=== PATIENT | female | born 1965 | race Caucasian/White ===

== ENCOUNTER 2016-12-04 09:31 | Emergency (ER) | payer OTHER ==
[~2016-12-04] VITALS: Ht 170.2 cm; Wt 81.6 kg
[2016-12-04] MEDS ORDERED: ASPIRIN 81 MG CHEW (CHILDREN'S ASA) PO ONE (09:45)
[2016-12-04] MEDS: RX-NITROGLYCERIN 0.4 MG TAB BTL 25'S SL PRN ×2 (09:47→10:00)
[2016-12-04] MEDS ORDERED: NS IV 1000 ML 1,000 ML ONE (09:55)
[2016-12-04 09:56] LABS: BASOPHILS # (AUTO) 0.1 10^3/uL (0.0-0.1); BASOPHILS % (AUTO) 2 % (0-10); EOSINOPHILS # (AUTO) 0.5 10^3/uL (0.0-0.3); EOSINOPHILS % (AUTO) 8 % (0-10); LYMPHOCYTES # (AUTO) 2.9 X 10^3 (1.0-4.0); LYMPHOCYTES % (AUTO) 43 % (12-44); MEAN CORPUSCULAR HEMOGLOBIN 30 PG (25-34); MEAN CORPUSCULAR HGB CONC 33 G/DL (32-36); MEAN CORPUSCULAR VOLUME 90 FL (80-99); MEAN PLATELET VOLUME 10.2 FL (7.4-10.4); MONOCYTES # (AUTO) 0.4 X 10^3 (0.0-1.0); MONOCYTES % (AUTO) 6 % (0-12); NEUTROPHILS # (AUTO) 2.8 X 10^3 (1.8-7.8); NEUTROPHILS % (AUTO) 42 % (42-75); PLATELET COUNT 250 10^3/uL (130-400); RED BLOOD COUNT 5.15 10^6/uL (4.35-5.85); RED CELL DISTRIBUTION WIDTH 13.1 % (10.0-14.5); WHITE BLOOD COUNT 6.7 10^3/uL (4.3-11.0)
--- NOTE | 2016-12-04 10:01 | Diagnostic Imaging Report ---
Portable upright radiograph of the chest. INDICATION: Chest pain and shortness of breath. FINDINGS: The lungs are clear. Heart size is normal. No effusion or pneumothorax. The mediastinum and edinson appear unremarkable. IMPRESSION: Unremarkable exam. Dictated by: Dictated on workstation # [id number]
[2016-12-04 10:13] LABS: INR 0.9 (0.8-1.4); PROTHROMBIN TIME PATIENT 11.5 SEC (12.2-14.7)
[2016-12-04 10:16] LABS: ALANINE AMINOTRANSFERASE 24 U/L (0-55); ALBUMIN 4.5 G/DL (3.2-4.5); ANION GAP 10 MMOL/L (5-14); ASPARTATE AMINO TRANSFERASE 24 U/L (5-34); BILIRUBIN,TOTAL 0.5 MG/DL (0.1-1.0); BLOOD UREA NITROGEN 11 MG/DL (7-18); BUN/CREATININE RATIO 14; CALCIUM 9.6 MG/DL (8.5-10.1); CARBON DIOXIDE 26 MMOL/L (21-32); CHLORIDE 108 MMOL/L (98-107); CREATININE SERUM 0.77 MG/DL (0.60-1.30); GFR ESTIMATED > 60; GLUCOSE 79 MG/DL (70-105); LIPASE 44 U/L (8-78); MAGNESIUM 2.5 MG/DL (1.8-2.4); SODIUM 144 MMOL/L (135-145); TOTAL PROTEIN 7.1 G/DL (6.4-8.2)
--- NOTE | 2016-12-04 10:21 | ED Chest Pain ---
General Chief Complaint: Chest Pain Stated Complaint: CHEST PAIN Nursing Triage Note: PT STATES MID STERNAL CHEST PAIN 8/10 FOR ABOUT 30 MINTUES. STATES L ARM TINGLING BUT NO OTHER RADIATING PAIN. Nursing Sepsis Screen: No Definite Risk Source: patient Exam Limitations: no limitations (AXEL KAPADIA MD) History of Present Illness Time seen by provider: 09:33 Initial Comments This 51-year-old woman presents to the emergency room with complaints of sudden onset of chest pain about 30 minutes prior to arrival. She is traveling from [place] by a car. She rates the pain is 8/10. It is difficult to take a deep breath and pain is exacerbated little bit with deep breathing. Pain is from the xiphoid area up through the left chest and radiates to the back. She denies any history of cardiopulmonary problems. She reports recently being treated for a left breast infection. She has a former smoking history and a family history of cardiac disease. She is rather hypertensive on presentation. She reports some numbness and tingling in her fingers. (AXEL KAPADIA MD) Allergies and Home Medications Allergies Coded Allergies: codeine (Verified Adverse Reaction, Mild, 12/04/16) Mental status changes Review of Systems Constitutional: no symptoms reported EENTM: No Symptoms Reported Respiratory: See HPI Cardiovascular: See HPI Gastrointestinal: No Symptoms Reported Genitourinary: No Symptoms Reported Musculoskeletal: no symptoms reported Skin: no symptoms reported Psychiatric/Neurological: No Symptoms Reported Endocrine: No Symptoms Reported Hematologic/Lymphatic: No Symptoms Reported (AXEL KAPADIA MD) Past Iyowjxm-Swhugg-Ckyzmp Hx Patient Social History Alcohol Use: Denies Use Recreational Drug Use: No Smoking Status: Former Smoker 2nd Hand Smoke Exposure: No Recent Foreign Travel: No Contact w/Someone Who Travel: No Recent Infectious Disease Expo: No Recent Hopitalizations: No (AXEL KAPADIA MD) Seasonal Allergies Seasonal Allergies: No (AXEL KAPADIA MD) Surgeries Surgeries: Section, Tonsillectomy (AXEL KAPADIA MD) Respiratory Hx Respiratory Disorders: No (AXEL KAPADIA MD) Cardiovascular Hx Cardiac Disorders: Yes Cardiac Disorders: High Cholesterol (AXEL KAPADIA MD) Neurological Hx Neurological Disorders: No (AXEL KAPADIA MD) Reproductive System : No (AXEL KAPADIA MD) Genitourinary Hx Genitourinary Disorders: No (AXEL KAPADIA MD) Gastrointestinal Hx Gastrointestinal Disorders: No (AXEL KAPADIA MD) Musculoskeletal Hx Musculoskeletal Disorders: No (AXEL KAPADIA MD) Endocrine Hx Endocrine Disorders: No (AXEL KAPADIA MD) HEENT HX ENT Disorders: No (AXEL KAPADIA MD) Cancer Hx Cancer: No (AXEL KAPADIA MD) Psychosocial Hx Psychiatric Problems: No (AXEL KAPADIA MD) Integumentary HX Skin/Integumentary Disorder: No (AXEL KAPADIA MD) Physical Exam Vital Signs Vital Sign - Last 12Hours 12/04/16 12/04/16 09:34 09:55 Temp 98.5 Pulse 95 Resp 20 B/P (MAP) 187/105 O2 Delivery Room Air (JALEESA RUIZ MD) Vital Signs Capillary Refill : Less Than 3 Seconds (AXEL KAPADIA MD) General Appearance: Mild Distress HEENT: PERRL/EOMI, Normal ENT Inspection Neck: Normal Inspection Respiratory: Chest Non Tender, Lungs Clear, Normal Breath Sounds, No Accessory Muscle Use, No Respiratory Distress Cardiovascular: Regular Rate, Rhythm, No Edema, No Murmur Gastrointestinal: Normal Bowel Sounds, Non Tender, Soft Extremity: Normal Inspection, Non Tender, No Calf Tenderness, No Pedal Edema, Other (negative Malcolm) Neurologic/Psychiatric: Alert, Oriented x3, Normal Mood/Affect, seismograph helper II-XII Norm as Tested, Other (somewhat anxious) Skin: Normal Color, Warm/Dry (AXEL KAPADIA MD) Progress/Results/Core Measures Results/Orders Lab Results Laboratory Tests Test 12/04/16 09:39 12/04/16 11:45 Range/Units White Blood Count 6.7 4.3-11.0 10^3/uL Red Blood Count 5.15 4.35-5.85 10^6/uL Hemoglobin 15.3 11.5-16.0 G/DL Hematocrit 46 35-52 % Mean Corpuscular Volume 90 80-99 FL Mean Corpuscular Hemoglobin 30 25-34 PG Mean Corpuscular Hemoglobin Concent 33 32-36 G/DL Red Cell Distribution Width 13.1 10.0-14.5 % Platelet Count 250 130-400 10^3/uL Mean Platelet Volume 10.2 7.4-10.4 FL Neutrophils (%) (Auto) 42 42-75 % Lymphocytes (%) (Auto) 43 12-44 % Monocytes (%) (Auto) 6 0-12 % Eosinophils (%) (Auto) 8 0-10 % Basophils (%) (Auto) 2 0-10 % Neutrophils # (Auto) 2.8 1.8-7.8 X 10^3 Lymphocytes # (Auto) 2.9 1.0-4.0 X 10^3 Monocytes # (Auto) 0.4 0.0-1.0 X 10^3 Eosinophils # (Auto) 0.5 H 0.0-0.3 10^3/uL Basophils # (Auto) 0.1 0.0-0.1 10^3/uL Prothrombin Time 11.5 L 12.2-14.7 SEC INR Comment 0.9 0.8-1.4 Activated Partial Thromboplast Time 30 24-35 SEC D-Dimer 0.29 0.00-0.49 UG/ML Sodium Level 144 135-145 MMOL/L Potassium Level 4.0 3.6-5.0 MMOL/L Chloride Level 108 H 98-107 MMOL/L Carbon Dioxide Level 26 21-32 MMOL/L Anion Gap 10 5-14 MMOL/L Blood Urea Nitrogen 11 7-18 MG/DL Creatinine 0.77 0.60-1.30 MG/DL Estimat Glomerular Filtration Rate > 60 BUN/Creatinine Ratio 14 Glucose Level 79 70-105 MG/DL Calcium Level 9.6 8.5-10.1 MG/DL Magnesium Level 2.5 H 1.8-2.4 MG/DL Total Bilirubin 0.5 0.1-1.0 MG/DL Aspartate Amino Transf (AST/SGOT) 24 5-34 U/L Alanine Aminotransferase (ALT/SGPT) 24 0-55 U/L Alkaline Phosphatase 86 40-136 U/L Myoglobin 42.0 33.0 10.0-92.0 NG/ML Troponin I < 0.30 < 0.30 <0.30 NG/ML Total Protein 7.1 6.4-8.2 G/DL Albumin 4.5 3.2-4.5 G/DL Lipase 44 8-78 U/L (JALEESA RUIZ MD) My Orders Orders - JALEESA RUIZ MD Troponin I (12/04/16 11:08) Ekg Tracing (12/04/16 11:08) Lidocaine 2% Viscous 15 Ml (Xylocaine Vi (12/04/16 11:15) Antacid Suspension (Mylanta Suspension (12/04/16 11:15) Myoglobin Serum (12/04/16 11:08) (JALEESA RUIZ MD) Medications Given in ED Current Medications Medications Dose Ordered Sig/Corrina Route Start Time Stop Time Status Last Admin Dose Admin Aspirin 324 mg ONCE ONCE PO 12/04/16 09:45 12/04/16 09:46 DC 12/04/16 09:47 324 MG Nitroglycerin 0.4 mg PRN PRN SL 12/04/16 09:45 12/04/16 10:00 0.4 MG (JLAEESA RUIZ MD) Vital Signs/I&O Vital Sign - Last 12Hours 12/04/16 12/04/16 09:34 09:55 Temp 98.5 Pulse 95 Resp 20 B/P (MAP) 187/105 O2 Delivery Room Air (JALEESA RUIZ MD) Blood Pressure Mean: 132 Progress Note : Time: 10:35 Progress Note Pain has reduced to 2/10 after nitroglycerin 2. D-dimer is still pending. Troponin and EKG are normal. (AXEL KAPADIA MD) Progress Note : Time: 10:45 Progress Note Assumed care of the patient at [address] Dee. Labs to this point are negative. I did have a discussion with the patient related to her chest pain and concerns given her history. Patient is here visiting and really does not want to stay in the hospital if possible. We discussed all the risk and benefits of staying including the possibility of a heart attack. She would like to pursue other options if possible. We will check repeat troponin and myoglobin as well as EKG at the two-hour wally from previous draw. We will get a GI cocktail because she states that she has some stomach upset due to garlic meal last night. Reevaluation of the patient shows her to be pain-free with normal breath sounds and heart rate that is regular in rate and rhythm without ectopy. O2 sat 97 percent on room air. Monitor patient. 1235: Repeat EKG and labs are negative. Patient is pain-free. She is having no complaints or concerns currently. We rediscussed risk and benefit. Patient would like to go home. At this point it appears safe enough the patient understands the risk including heart attack that could lead to significant dysfunction or . Patient instructed to return for any concerns for which she will. She will also follow up with her doctor immediately on return back to [place]. Discharged home with return precautions. Patient verbalize understanding instructions and agreement with plan. (JALEESA RUIZ MD) ECG Initial ECG Impression Date: December 04, 2016 Initial ECG Impression Time: 09:37 Initial ECG Rate: 85 Initial ECG Rhythm: Normal Sinus Initial ECG Intervals: Normal Initial ECG Impression: Normal Comment NSR with no ST elevation or depression. No abnormal intervals or axis deviation. (AXEL KAPADIA MD) EKG : EKG Time: 12:21 Rate: 73 Rhythm: Normal Sinus ECG Comparisson: Unchanged ECG Impression: Normal Comment Sinus rhythm with normal axis. No evidence of ST elevation [place]. Unchanged from previous. Interpreted by me. (JALEESA RUIZ MD) Diagnostic Imaging Diagonstic Imaging: Xray Plain Films/CT/US/NM/MRI: chest Comments Chest x-ray viewed by me and report reviewed. NAME: JOCE MCKEE [facility] REC#: [id number] PT STATUS: REG ER : 1965 PHYSICIAN: AXEL KAPADIA MD ADMIT DATE: 12/04/16/ER Draft Date of Exam:12/04/16 CHEST 1 VIEW, AP/PA ONLY Portable upright radiograph of the chest. INDICATION: Chest pain and shortness of breath. FINDINGS: The lungs are clear. Heart size is normal. No effusion or pneumothorax. The mediastinum and edinson appear unremarkable. IMPRESSION: Unremarkable exam. Dictated on workstation # [id number] Dict: 12/04/16 [id number] Trans: 12/04/16 1001 [id number] Interpreted by: ELIZABETH BENDER MD (AXEL KAPADIA MD) Departure Impression Impression: Primary Impression: Chest pain Qualified Codes: R07.9 - Chest pain, unspecified Disposition: 01 HOME, SELF-CARE Condition: Stable Departure-Patient Inst. Referrals: NO,LOCAL PHYSICIAN (PCP/Family) Primary Care Physician Patient Instructions: Chest Pain (DC) Add. Discharge Instructions: All discharge instructions reviewed with patient and/or family. Voiced understanding. You should take aspirin 81 mg daily (baby aspirin). Follow-up with your doctor immediately on return back to your home state. Return for worse pain, weakness , breathing problems, sweating, dizziness, chest pain of any type or other concerns as needed. Continue home medications as directed. You may take Pepcid or the generic famotidine 20 mg once or twice daily as needed for stomach upset. AXEL KAPADIA MD December 04, 2016 10:21 JALEESA RUIZ MD December 04, 2016 11:12
[2016-12-04] MEDS ORDERED: LIDOCAINE 2% VISCOUS 15 ML UDC PO ONE (11:15)
[2016-12-04] MEDS ORDERED: ANTACID SUSP 30 ML UDC (MYLANTA) PO ONE (11:15)
[2016-12-04 12:27] LABS: TROPONIN I < 0.30 NG/ML (<0.30)
[2016-12-04 18:51] VITALS: BP 135/70
== END 2016-12-04 12:50 | disposition home or self-care (01) ==
LOC: ER 09:33
DX: R07.9 Chest pain, unspecified (principal); Z87.891 Personal history of nicotine dependence
CPT/HCPCS: 36415; 71010; 80053; 83690; 83735; 83874; 84484; 85025; 85379; 85610; 85730; 93005; 93041